=== PATIENT | female | born 1960 | race Caucasian/White ===

== ENCOUNTER 2023-07-24 13:56 | Outpatient (RCR) | payer OTHER, SELFPAY | END 2023-07-24 23:59 | disposition home or self-care (01) | LOC: RPT 13:56 | PROVIDERS: ATTENDING PHYSICIAN Orthopaedic Surgery; FAMILY PHYSICIAN Family Medicine | DX: Z47.1 Aftercare following joint replacement surgery (principal); Z96.651 Presence of right artificial knee joint; Z73.6 Limitation of activities due to disability | CPT/HCPCS: 97010; 97110; 97112; 97162; 97530 ==

== ENCOUNTER 2023-08-25 15:51 | Outpatient (RCR) | payer OTHER, SELFPAY | END 2023-08-25 23:59 | disposition home or self-care (01) | LOC: RPT 15:51 | PROVIDERS: ATTENDING PHYSICIAN Orthopaedic Surgery; FAMILY PHYSICIAN Family Medicine | DX: Z47.1 Aftercare following joint replacement surgery (principal); Z73.6 Limitation of activities due to disability; R26.2 Difficulty in walking, not elsewhere classified; M62.81 Muscle weakness (generalized); M25.561 Pain in right knee; Z96.651 Presence of right artificial knee joint | CPT/HCPCS: 97010; 97110; 97112; 97530 ==

== ENCOUNTER 2023-09-29 16:00 | Outpatient (RCR) | payer OTHER, SELFPAY | END 2023-09-29 23:59 | disposition home or self-care (01) | LOC: RPT 16:00 | PROVIDERS: ATTENDING PHYSICIAN Orthopaedic Surgery; FAMILY PHYSICIAN Family Medicine | DX: Z47.1 Aftercare following joint replacement surgery (principal); Z73.6 Limitation of activities due to disability; R26.2 Difficulty in walking, not elsewhere classified; M62.81 Muscle weakness (generalized); M25.561 Pain in right knee; Z96.651 Presence of right artificial knee joint | CPT/HCPCS: 97110; 97530 ==

== ENCOUNTER → 2024-03-18 08:32 | Outpatient (REF) | payer OTHER, SELFPAY ==
[2024-03-18 09:42] LABS: % Basophils 0.7 % (0-2); % Eosinophils 2.3 % (0-6); % Immature Granulocytes 0.2 % (0-0.5); % Lymphocytes 19.9 % (20.5-51.1); % Neutrophils 68.9 % (42.2-75.2); Absolute Basophils 0.1 10^3/uL (0-0.2); Absolute Eosinophils 0.2 10^3/uL (0-0.7); Absolute Lymphocytes 1.7 10^3/uL (1.2-3.4); Absolute Monocytes 0.7 10^3/uL (0.1-0.6); Absolute Neutrophils 5.7 10^3/uL (1.4-6.5); Hematocrit 37.1 % (37.0-47.0); Mean Corp Hgb Conc. 32.3 g/dL (33.0-37.0); Mean Corpuscular Hgb 26.2 pg (27.0-31.0); Mean Platelet Volume 8.9 fL (7.4-10.4); Nucleated Red Blood Cells % 0 %; Platelet Count 378 10^3/uL (130-400); Red Blood Cell Count 4.58 10^6/uL (4.20-5.40); Red Cell Dist. Width 14.5 % (11.5-14.5); White Blood Cell Count 8.3 10^3/uL (4.8-10.8)
[2024-03-18 10:35] LABS: Blood Urea Nitrogen 13 mg/dl (7-17); Calcium 9.9 mg/dl (8.4-10.2); Carbon Dioxide 24 mmol/L (22-30); Chloride 99 mmol/L (98-107); Glucose 98 mg/dl (70-99); Iron 69 ug/dl (37-170); Potassium 4.3 mmol/L (3.5-5.1); Sodium 139 mmol/L (135-145); eGFR > 60.00
[2024-03-18 10:44] LABS: Percent Saturation 17 % (20-50); Total Iron Binding Capacity 394 ug/dl (265-497)
[2024-03-18 11:06] LABS: Ferritin 28.1 ng/ml (11.1-264.0)
[2024-03-18 12:17] LABS: Glycohemoglobin (HgbA1c) 6.1 % (4.0-5.6)
== END ==
LOC: REG 08:32
PROVIDERS: ATTENDING PHYSICIAN Obstetrics & Gynecology Reproductive Endocrinology; FAMILY PHYSICIAN Family Medicine
DX: I10 Essential (primary) hypertension (principal); I48.0 Paroxysmal atrial fibrillation; I45.10 Unspecified right bundle-branch block; R60.9 Edema, unspecified; D50.0 Iron deficiency anemia secondary to blood loss (chronic)
CPT/HCPCS: 36415; 80048; 82728; 83036; 83540; 83550; 85025

== ENCOUNTER → 2024-03-25 15:59 | Outpatient (REF) | payer OTHER, SELFPAY | LOC: WDC 15:59 | PROVIDERS: ATTENDING PHYSICIAN Obstetrics & Gynecology Gynecology; FAMILY PHYSICIAN Family Medicine | DX: Z12.31 Encounter for screening mammogram for malignant neoplasm of breast (principal) | CPT/HCPCS: 77063; 77067 ==

== ENCOUNTER 2024-10-18 15:58 | Outpatient (RCR) | payer OTHER, SELFPAY | END 2024-10-18 23:59 | disposition home or self-care (01) | LOC: RPT 15:58 | PROVIDERS: ATTENDING PHYSICIAN Student in an Organized Health Care Education/Training Program; FAMILY PHYSICIAN Family Medicine | DX: Z47.1 Aftercare following joint replacement surgery (principal); M76.62 Achilles tendinitis, left leg (principal); Z96.651 Presence of right artificial knee joint; M79.671 Pain in right foot; Z73.6 Limitation of activities due to disability; R26.2 Difficulty in walking, not elsewhere classified; M54.9 Dorsalgia, unspecified; R26.89 Other abnormalities of gait and mobility | CPT/HCPCS: 97110; 97112; 97162 ==

== ENCOUNTER 2024-11-29 16:22 | Outpatient (RCR) | payer OTHER, SELFPAY | END 2024-11-29 23:59 | disposition home or self-care (01) | LOC: RPT 16:22 | PROVIDERS: ATTENDING PHYSICIAN Student in an Organized Health Care Education/Training Program; FAMILY PHYSICIAN Family Medicine | DX: M76.62 Achilles tendinitis, left leg (principal); Z73.6 Limitation of activities due to disability; R26.2 Difficulty in walking, not elsewhere classified; M79.671 Pain in right foot; M54.9 Dorsalgia, unspecified; R26.89 Other abnormalities of gait and mobility; Z47.1 Aftercare following joint replacement surgery; Z96.651 Presence of right artificial knee joint | CPT/HCPCS: 97110; 97112; 97140 ==

== ENCOUNTER 2024-12-06 16:20 | Outpatient (RCR) | payer OTHER, SELFPAY | END 2024-12-06 23:59 | disposition home or self-care (01) | LOC: RPT 16:20 | PROVIDERS: ATTENDING PHYSICIAN Student in an Organized Health Care Education/Training Program; FAMILY PHYSICIAN Family Medicine | DX: Z47.1 Aftercare following joint replacement surgery (principal); M76.62 Achilles tendinitis, left leg; Z73.6 Limitation of activities due to disability; M79.671 Pain in right foot; R26.2 Difficulty in walking, not elsewhere classified; M54.9 Dorsalgia, unspecified; R26.89 Other abnormalities of gait and mobility; Z96.651 Presence of right artificial knee joint | CPT/HCPCS: 97110 ==

== ENCOUNTER → 2024-12-30 08:57 | Outpatient (REF) | payer OTHER, SELFPAY ==
[2024-12-30 09:47] LABS: Hematocrit 33.2 % (37.0-47.0); Hemoglobin 10.7 g/dL (12.0-16.0); Mean Corp Hgb Conc. 32.2 g/dL (33.0-37.0); Mean Corpuscular Volume 83.4 fL (81.0-99.0); Nucleated Red Blood Cells % 0 %; Platelet Count 428 10^3/uL (130-400); Red Cell Dist. Width 14.6 % (11.5-14.5)
[2024-12-30 10:37] LABS: ALT (SGPT) 14 U/L (0-35); AST (SGOT) 16 U/L (14-36); Albumin 4.3 g/dl (3.5-5.0); Alkaline Phosphatase 50 U/L (38-126); Blood Urea Nitrogen 19 mg/dl (7-17); Calcium 9.6 mg/dl (8.4-10.2); Carbon Dioxide 24 mmol/L (22-30); Chloride 105 mmol/L (98-107); Glucose 88 mg/dl (70-99); HDL Cholesterol 54 mg/dl; LDL Cholesterol, Calculated 85 mg/dl; Potassium 4.0 mmol/L (3.5-5.1); Sodium 137 mmol/L (135-145); Total Protein 8.1 g/dl (6.3-8.2); Very Low Density Lipoprotein 30 mg/dl (0-30); eGFR > 60.00
[2024-12-30 11:03] LABS: Glycohemoglobin (HgbA1c) 6.0 % (4.0-5.6)
[2024-12-30 12:19] LABS: Vitamin B12 261 pg/ml (239-931)
== END ==
LOC: REG 08:57
PROVIDERS: ATTENDING PHYSICIAN Family Medicine
DX: R73.9 Hyperglycemia, unspecified (principal); E78.2 Mixed hyperlipidemia; I10 Essential (primary) hypertension; E53.8 Deficiency of other specified B group vitamins
CPT/HCPCS: 36415; 80053; 80061; 82607; 83036; 85025

== ENCOUNTER 2025-03-28 09:36 | Outpatient (RCR) | payer OTHER, SELFPAY | END 2025-03-28 23:59 | disposition home or self-care (01) | LOC: RPT 09:36 | PROVIDERS: ATTENDING PHYSICIAN Student in an Organized Health Care Education/Training Program; FAMILY PHYSICIAN Family Medicine | DX: M76.62 Achilles tendinitis, left leg (principal); Z73.6 Limitation of activities due to disability | CPT/HCPCS: 97110; 97112; 97162 ==

== ENCOUNTER 2025-04-25 13:32 | Outpatient (RCR) | payer OTHER, SELFPAY | END 2025-04-29 06:27 | disposition home or self-care (01) | LOC: RPT 13:32 | PROVIDERS: ATTENDING PHYSICIAN Student in an Organized Health Care Education/Training Program; FAMILY PHYSICIAN Family Medicine | DX: M76.62 Achilles tendinitis, left leg (principal); Z73.6 Limitation of activities due to disability | CPT/HCPCS: 97110; 97112 ==